=== PATIENT | female | born 1960 | race Caucasian/White ===

== ENCOUNTER 2019-03-02 18:09 | Emergency (ER) | payer SELFPAY ==
[~2019-03-02] VITALS: Ht 160 cm; Wt 72.6 kg
--- NOTE | 2019-03-02 18:09 | NUR ---
Patient TYLER PRADO for pre-booking medical screening exam, transferred to chair E. RN evaluating patient.
[2019-03-02 18:19] VITALS: BP 111/55
--- NOTE | 2019-03-02 18:19 | NUR ---
59Y/F BIB [facility] WITH C/O FALL YESTERDAY, + LOC, PT HIT HER HEAD ON THE FLOOR PRE-BOOK,PT IS AAOX4, VSS AT THIS TIME, ER MD AWARE AND NOTIFIED OF PT STATUS. PMH: DENIES RX: DENIES
[2019-03-02 19:52] VITALS: BP 111/55
--- NOTE | 2019-03-02 19:52 | NUR ---
PATIENT EXAMINED BY DR. NICOLAS. PATIENT MEDICALLY CLEARED AND RELEASED IN CUSTODY IN STABLE CONDITION. ORIGINAL PRE-BOOK FORM GIVEN TO OFFICER HAY. PT DISCHARGED BY DR. NICOLAS.
== END 2019-03-02 19:52 ==
LOC: MED 18:09 → EDSEX 18:09 → MED 19:52
DX: R10.9 Unspecified abdominal pain (principal); Z02.89 Encounter for other administrative examinations; W19.XXXA Unspecified fall, initial encounter; Y93.89 Activity, other specified; Y92.89 Other specified places as the place of occurrence of the external cause; Y99.8 Other external cause status
CPT/HCPCS: 99283